=== PATIENT | female | born 1985 | race Caucasian/White ===

== ENCOUNTER 2021-12-27 23:27 | Emergency (ER) | payer OTHER ==
[~2021-12-27] VITALS: Ht 175.3 cm; Wt 180.0 kg
[2021-12-27 23:38] VITALS: BP 153/93
[2021-12-28] MEDS ORDERED: FLUORESCEIN SOD OPTH TEST STRIP EACHEYE ONE (00:15)
[2021-12-28] MEDS ORDERED: TETRACAINE HCL 0.5% OPTH(EYE) SOLN 4ML EACHEYE ONE (00:15)
[2021-12-28] MEDS ORDERED: NEOMYCIN-POLYM-GRAM OPTH(EYE) SOL 10ML EACHEYE ONE (00:30)
[2021-12-28] MEDS ORDERED: NEOMYCIN-BACITRACIN-POLYM UNITDOSE PKG TOP OINT TOP ONE (00:45)
== END 2021-12-28 01:18 | disposition home or self-care (01) ==
LOC: ER 23:27
DX: H16.133 Photokeratitis, bilateral (principal); Z88.0 Allergy status to penicillin